=== PATIENT | female | born 1955 | race Two or more races ===

== ENCOUNTER → 2019-05-13 | Day surgery (SDC) | payer MEDICARE, OTHER ==
[~2019-05-13] MED LIST: AMLO2.5T2 PO; CROM26SP NS; FLUT50DI IH; IV RINGERS SOLUTION,LACTATED 1,000 ML IV SCH; LORA5SOL43 PO; MONT10TA80 PO; NITR1PAT72 TD; PROPOFOL 20 ML IV ONE
[2019-05-13 12:11] VITALS: BP 140/96
== END | disposition home or self-care (01) ==
LOC: SURG 10:14
PROVIDERS: ATTEND Emergency Medicine
DX: R19.5 Other fecal abnormalities (principal); K64.8 Other hemorrhoids; K57.30 Diverticulosis of large intestine without perforation or abscess without bleeding; I10 Essential (primary) hypertension; K21.9 Gastro-esophageal reflux disease without esophagitis; J45.909 Unspecified asthma, uncomplicated; Z98.890 Other specified postprocedural states; Z88.1 Allergy status to other antibiotic agents; Z79.899 Other long term (current) drug therapy; Z90.49 Acquired absence of other specified parts of digestive tract; Z88.6 Allergy status to analgesic agent; Z88.8 Allergy status to other drugs, medicaments and biological substances
CPT/HCPCS: 45378; J2704; J7120